=== PATIENT | female | born 1945 | race Caucasian/White ===

== ENCOUNTER 2021-08-15 17:04 | Emergency (ER) | payer MEDICAID ==
[~2021-08-15] VITALS: Ht 160 cm; Wt 68.0 kg
--- NOTE | 2021-08-15 17:18 | NUR ---
BIBPA FOR N/V/D X4 DAYS. DENIES HEADACHE AND ABD PAIN. TO ER BED 10, HOOKED TO MONITOR, CHANGED TO HOSP GOWN, WARM BLANKET PROVIDED. PATIENT AAO x 4. BREATHING EVEN AND UNLABORED. AWAITING MD NICOLAS.
--- NOTE | 2021-08-15 17:37 | NUR ---
DR MCLAUGHLIN AT BEDSIDE
[2021-08-15] MEDS ORDERED: IV NS 0.9% 1,000 ML BAG IV ONE (18:00)
[2021-08-15] MEDS ORDERED: ONDANSETRON HCL/PF 4 MG/2 ML VIAL IVP ONE (18:00)
[2021-08-15 18:10] LABS: ALBUMIN 3.7 g/dL (3.4-5.0); BILIRUBIN,DIRECT 0.1 mg/dL (0.0-0.2); BILIRUBIN,TOTAL 0.4 mg/dL (0.2-1.0); CALCIUM, SERUM 8.4 mg/dL (8.5-10.1); CREATININE 0.8 mg/dL (0.6-1.3); TOTAL PROTEIN, SERUM 7.1 g/dL (6.4-8.2)
[2021-08-15 18:11] LABS: BASOPHILS % (AUTO) 0.4 % (0.0-2.0); EOSINOPHILS % (AUTO) 3.6 % (0.0-6.0); HEMATOCRIT 43 % (33-45); LYMPHOCYTES # (AUTO) 2.1 K/uL (0.8-4.8); LYMPHOCYTES % (AUTO) 30.2 % (20.0-44.0); MEAN CORPUSCULAR HGB CONC 33 g/dl (31.0-36.0); MEAN CORPUSCULAR VOLUME 88 fL (82-100); MONOCYTES # (AUTO) 0.7 K/uL (0.1-1.30); MONOCYTES % (AUTO) 9.6 % (2.0-12.0); NEUTROPHILS # (AUTO) 3.9 K/uL (1.8-8.9); NEUTROPHILS % (AUTO) 56.2 % (43.0-81.0); PLATELET COUNT (AUTO) 263 K/uL (150-450); RED BLOOD CELL COUNT(AUTO) 4.83 MIL/uL (4.0-5.2); WHITE BLOOD COUNT (AUTO) 6.9 K/uL (4.3-11.0)
[2021-08-15] MEDS ORDERED: ONDANSETRON HCL/PF 4 MG/2 ML VIAL ONE (18:41)
[2021-08-15 20:05] LABS: BILIRUBIN,URINE NEGATIVE (NEGATIVE); COLOR,URINE YELLOW (YELLOW); LEUKOCYTE ESTERASE ,URINE LARGE (NEGATIVE); NITRITE, URINE NEGATIVE (NEGATIVE); PH,URINE 6.5 (5.0-8.0); PROTEIN,URINE NEGATIVE (NEGATIVE); UGLUCOSE NEGATIVE (NEGATIVE); UROBILINOGEN,URINE 0.2 EU/dL (0.2)
[2021-08-15 20:58] LABS: BACTERIA,URINE 2+ /HPF (None Seen); WBC,URINE 51-80 /HPF (0-3)
--- NOTE | 2021-08-15 21:31 | NUR ---
[facility] CALLED FOR TRANSPORT. ETA 60 MINUTES.
[2021-08-15] MEDS ORDERED: CEPH500C2 PO (22:02)
--- NOTE | 2021-08-15 22:28 | NUR ---
REPORT GIVEN TO STEFFANIE FOR [facility]
--- NOTE | 2021-08-15 22:32 | NUR ---
IV CANNULA REMOVED
--- NOTE | 2021-08-15 22:40 | NUR ---
PT PICKED UP BY [facility] [id number] IN STABLE CONDITION BACK TO [facility]
[2021-08-15 23:02] VITALS: BP 106/75
== END 2021-08-15 23:03 | disposition home or self-care (01) ==
LOC: ER 17:50
DX: R11.2 Nausea with vomiting, unspecified (principal); R10.13 Epigastric pain; E78.5 Hyperlipidemia, unspecified; F41.9 Anxiety disorder, unspecified; F25.9 Schizoaffective disorder, unspecified; K21.9 Gastro-esophageal reflux disease without esophagitis; J44.9 Chronic obstructive pulmonary disease, unspecified; F32.A Depression, unspecified
CPT/HCPCS: 36415; 71045; 80048; 80076; 81001; 83690; 85025; 87086; 96361; 96374; 99284; J2405; J7030